=== PATIENT | male | born 1965 | race Caucasian/White ===

== ENCOUNTER 2019-01-03 12:49 | Emergency (ER) | payer BC ==
[2019-01-03 13:43] LABS: APPEARANCE,URINE CLEAR (CLEAR); BILIRUBIN,URINE NEGATIVE (NEGATIVE); COLOR,URINE YELLOW (YELLOW); GLUCOSE, URINE (UA) NEGATIVE (NEGATIVE); KETONES,URINE NEGATIVE (NEGATIVE); LEUKOCYTE ESTERASE ,URINE SMALL (NEGATIVE); NITRATE,URINE NEGATIVE (NEGATIVE); OCCULT BLOOD,URINE MODERATE (NEGATIVE); PROTEIN,URINE TRACE mg/dL (NEGATIVE); UROBILINOGEN,URINE 0.2 mg/dL (0.2-1.0)
[2019-01-03] MEDS ORDERED: KETOROLAC TROMETHAMINE 30MG/ML ONE (13:46)
[2019-01-03] MEDS ORDERED: ONDANSETRON HCL 4 MG/2 ML VIAL ONE (13:46)
[2019-01-03] MEDS ORDERED: SODIUM CHLORIDE 0.9% 1000ML 1,000 ML IV ONE (13:47)
[2019-01-03 14:01] LABS: BACTERIA,URINE Few /HPF (None Seen); MUCUS,URINE Moderate LPF (None Seen); SQUAMOUS EPITHELIAL CELL,UR 0-2 /HPF (0-2); WBC,URINE 26-50 /HPF (0-1)
[2019-01-03 14:05] LABS: BASOPHILS % (AUTO) 0.4 % (0.0-5.0); EOSINOPHILS % (AUTO) 0.8 % (0.0-8.0); HEMATOCRIT 44.7 % (42-54); LYMPHOCYTES % (AUTO) 20.6 % (21.0-51.0); MEAN CORPUSCULAR HEMOGLOBIN 30.5 pg (27.0-33.0); MEAN CORPUSCULAR HGB CONC 33.9 g/dL (32.0-36.0); MONOCYTES % (AUTO) 4.1 % (3.0-13.0); NEUTROPHILS % (AUTO) 74.1 % (40.0-77.0); PLATELET COUNT (AUTO) 216 K/uL (130-400); RED BLOOD CELL COUNT(AUTO) 4.97 MIL/uL (4.50-6.20); RED CELL DISTRIBUTION WIDTH 14.3 % (11.0-15.5); WHITE BLOOD COUNT (AUTO) 11.6 K/uL (4.8-10.8)
[2019-01-03 14:15] LABS: CREATININE 3.1 mg/dL (0.5-1.5); POTASSIUM 3.5 mmol/L (3.5-5.1)
[2019-01-03 14:18] LABS: ALBUMIN 3.5 g/dL (3.5-5.0); BILIRUBIN,TOTAL 0.4 mg/dL (0.2-1.0); TOTAL PROTEIN, SERUM 7.2 g/dL (6.0-8.3)
[2019-01-03] MEDS ORDERED: TAMSULOSIN HCL 0.4 MG CAP.ER.24H ONE (14:20)
[2019-01-03] MEDS ORDERED: CEFTRIAXONE SODIUM 1 GM ONE (14:21)
[2019-01-05] MEDS ORDERED: LACTATED RINGERS 1000ML 1,000 ML IV ONE (13:47)
[2019-01-06] MEDS ORDERED: LEVO500T2 PO (19:57)
[2019-01-06] MEDS ORDERED: OXYB5 PO (19:57)
== END 2019-01-03 15:31 | disposition home or self-care (01) ==
LOC: EDH 12:49
DX: N17.9 Acute kidney failure, unspecified (principal); N39.0 Urinary tract infection, site not specified; N13.2 Hydronephrosis with renal and ureteral calculous obstruction; Z72.0 Tobacco use
CPT/HCPCS: 36415; 74176; 76770; 80053; 81001; 83690; 85025; 96374; 96375; 99285; J0696; J1885; J2405; J7030

== ENCOUNTER 2019-01-03 17:12 | Inpatient (IN) | payer BC | END 2019-01-06 22:45 | disposition home or self-care (01) | LOC: EDH 17:12 → EDHIP 18:58 → 3AH 22:34 | PROC: BT141ZZ Fluoroscopy of Kidneys, Ureters and Bladder using Low Osmolar Contrast (ICD-10-PCS; principal; 2019-01-05 12:55) | PROC: 0TC74ZZ Extirpation of Matter from Left Ureter, Percutaneous Endoscopic Approach (ICD-10-PCS; 2019-01-05 12:55) | PROC: 0TC48ZZ Extirpation of Matter from Left Kidney Pelvis, Via Natural or Artificial Opening Endoscopic (ICD-10-PCS; 2019-01-05 12:55) | PROC: 0T778DZ Dilation of Left Ureter with Intraluminal Device, Via Natural or Artificial Opening Endoscopic (ICD-10-PCS; 2019-01-05 12:55) | DX: N13.6 Pyonephrosis (principal); N17.9 Acute kidney failure, unspecified; N39.0 Urinary tract infection, site not specified; F17.210 Nicotine dependence, cigarettes, uncomplicated; R74.8 Abnormal levels of other serum enzymes ==

== ENCOUNTER 2019-01-31 10:50 | Observation (INO) | payer BC ==
[2019-01-30 14:18] VITALS: BP 100/78
[2019-01-30 14:25] LABS: APPEARANCE,URINE Clear (CLEAR); BILIRUBIN,URINE Negative (NEGATIVE); COLOR,URINE Yellow (YELLOW); GLUCOSE, URINE (UA) Negative (NEGATIVE); KETONES,URINE Negative (NEGATIVE); LEUKOCYTE ESTERASE ,URINE Moderate (NEGATIVE); NITRATE,URINE Negative (NEGATIVE); OCCULT BLOOD,URINE Large (NEGATIVE); PROTEIN,URINE POS 1+ mg/dL (NEGATIVE); UROBILINOGEN,URINE 0.2 mg/dL (0.2-1.0)
[2019-01-30 14:27] LABS: HEMATOCRIT 44.9 % (42-54); MEAN CORPUSCULAR HEMOGLOBIN 30.4 pg (27.0-33.0); MEAN CORPUSCULAR HGB CONC 33.6 g/dL (32.0-36.0); MEAN CORPUSCULAR VOLUME 90.5 fL (79-99); NUCLEATED RED BLOOD CELLS 0.1 % (0.0-0.19); PLATELET COUNT (AUTO) 193 K/uL (130-400); RED BLOOD CELL COUNT(AUTO) 4.96 MIL/uL (4.50-6.20); RED CELL DISTRIBUTION WIDTH 13.8 % (11.0-15.5); WHITE BLOOD COUNT (AUTO) 7.3 K/uL (4.8-10.8)
[2019-01-30 14:34] LABS: CREATININE 1.7 mg/dL (0.5-1.5); POTASSIUM 3.9 mmol/L (3.5-5.1); RBC,URINE 51-100 /HPF (0-1)
[2019-01-30 14:35] LABS: BACTERIA,URINE None Seen /HPF (None Seen); SQUAMOUS EPITHELIAL CELL,UR Rare /HPF (0-2); WBC,URINE 26-50 /HPF (0-1)
[2019-01-30 14:37] LABS: INR 1.01 (0.85-1.15); PARTIAL THROMBOPLASTIN TIME 27.5 SEC (26.3-35.5); PROTHROMBIN TIME 10.6 SEC (9.6-11.6)
--- NOTE | 2019-01-30 15:20 | NUR ---
EKG INFORMED DR. JOHNSON OF ABNORMAL EKG. NO ORDERS RECEIVED. PROCEED WITH PLANNED PROCEDURE.
--- NOTE | 2019-01-30 15:37 | NUR ---
UA INFORMED AND REPORTED ABNORMAL UA TO DR. JANET PERKINS. SHE WILL INFORM HIM.
[~2019-01-31] VITALS: Ht 182.9 cm; Wt 92.9 kg
[2019-01-31] VITALS (28 sets, daily range): BP systolic 99–146; BP diastolic 65–89
[2019-01-31] MEDS: CEFAZOLIN SODIUM 1 GM VIAL IVP ONE ×2 (08:00→11:50)
[2019-01-31] MEDS ORDERED: CEFAZOLIN SODIUM 1 GM VIAL ONE (11:16)
[2019-01-31] MEDS ORDERED: IOHEXOL-350 50ML VIAL IV ONE (11:31)
[2019-01-31] MEDS: LACTATED RINGERS 1000ML 1,000 ML IV SCH ×3 (11:32→16:47)
[2019-01-31] MEDS ORDERED: ATOR20TA65 PO (11:36)
[2019-01-31] MEDS ORDERED: PROPOFOL 10 MG/ML 20ML VIAL IV ONE ×2 (11:43→11:52)
[2019-01-31] MEDS ORDERED: MIDAZOLAM HCL 1 MG/ML 2ML VIAL ONE (11:43)
[2019-01-31] MEDS ORDERED: LIDOCAINE PF 2% 5ML ABBOJECT ONE (11:43)
[2019-01-31] MEDS ORDERED: FENTANYL CITRATE PF 50 MCG/1 ML 2ML VIAL ONE ×2 (11:44→13:19)
[2019-01-31] MEDS ORDERED: PHENYLEPHRINE HCL 10 MG/ML 1ML VIAL IV ONE (11:59)
[2019-01-31] MEDS ORDERED: DEXAMETHASONE SOD PHOSPHATE 10MG/ML 1ML VIAL ONE (12:02)
[2019-01-31] MEDS ORDERED: ONDANSETRON HCL 4 MG/2 ML VIAL ONE (12:02)
[2019-01-31] MEDS ORDERED: LACTATED RINGERS 1000ML 1,000 ML IV SCH (16:15)
[2019-01-31] MEDS ORDERED: ONDANSETRON HCL 4 MG/2 ML VIAL IVP PRN (16:30)
[2019-01-31] MEDS ORDERED: MEPERIDINE-PF 75 MG/ML SYG IM PRN (16:30)
[2019-01-31] MEDS: ACETAMINOPHEN-CODEINE 300/30MG TAB PO PRN ×2 (16:46→23:50)
[2019-01-31] MEDS: CEFAZOLIN SODIUM 1 GM VIAL IVP SCH (20:59)
[2019-02-01] VITALS: BP 92/66
[2019-02-01] MEDS: LACTATED RINGERS 1000ML 1,000 ML IV SCH (01:53)
[2019-02-01 04:00] VITALS: BP 112/70
[2019-02-01] MEDS: ACETAMINOPHEN-CODEINE 300/30MG TAB PO PRN (05:15)
[2019-02-01] MEDS: CEFAZOLIN SODIUM 1 GM VIAL IVP SCH (05:15)
[2019-02-01 05:35] LABS: BASOPHILS % (AUTO) 0.2 % (0.0-5.0); HEMATOCRIT 41.3 % (42-54); LYMPHOCYTES % (AUTO) 9.3 % (21.0-51.0); MEAN CORPUSCULAR HEMOGLOBIN 30.5 pg (27.0-33.0); MEAN CORPUSCULAR HGB CONC 33.8 g/dL (32.0-36.0); MONOCYTES % (AUTO) 4.1 % (3.0-13.0); NEUTROPHILS % (AUTO) 86.4 % (40.0-77.0); PLATELET COUNT (AUTO) 174 K/uL (130-400); RED BLOOD CELL COUNT(AUTO) 4.59 MIL/uL (4.50-6.20); RED CELL DISTRIBUTION WIDTH 14.1 % (11.0-15.5); WHITE BLOOD COUNT (AUTO) 15.9 K/uL (4.8-10.8)
[2019-02-01 05:42] LABS: CREATININE 1.7 mg/dL (0.5-1.5); POTASSIUM 4.2 mmol/L (3.5-5.1)
[2019-02-01 07:30] VITALS: BP 103/69
--- NOTE | 2019-02-01 07:50 | NUR ---
RECEIVED IN BED, ALERT AND ORIENTED X3 WITHOUT RESPIRATORY DISTRESS ON ROOM AIR. IVF INFUSING WITHOUT PROBLEM. NUNN CATHETER TO BEDSIDE DRAINAGE BAG DRAINING CLEAR TO DARK PINK URINE WITH STREAK OF BLOOD. SCD'S ARE IN PLACE. PLAN OF CARE EXPLAINED TO THE PATIENT WHO VERBALIZED UNDERSTANDING.
--- NOTE | 2019-02-01 09:30 | NUR ---
T/C MADE TO DR GONZALES'S OFFICE REGARDING DISCHARGE PLAN SINCE THE PATIENT IS ANXIOUS TO LEAVE. PENDING CALL BACK.
--- NOTE | 2019-02-01 09:35 | NUR ---
PATIENT WAS MADE AWARE OF THE COMMUNICATION WITH DR GONZALES.
[2019-02-01 11:00] VITALS: BP 99/63
--- NOTE | 2019-02-01 12:45 | NUR ---
NUNN CATHETER WAS DISCONTINUED AD PER DR GONZALES ORDER. PATIENT TOLERATED IT WELL AND 475ML OF DARK PINK URINE WAS DISCARDED.
--- NOTE | 2019-02-01 13:27 | NUR ---
DISCHARGE INSTRUCTIONS GIVEN TO THE PATIENT WITH PRESCRIPTION AND FOLLOW-UP RECOMMENDATION AND HE VERBALIZED UNDERSTANDING. IV ACCESS WAS REMOVED WITHOUT COMPLICATION. LEFT THE UNIT IN STABLE CONDITION AMBULATORY ACCOMPANIED BY HIS AND THE STUDENT NURSE.
== END 2019-02-01 13:25 | disposition home or self-care (01) ==
LOC: DAH 10:50 → DAHIP 10:51 → 4BH 15:35
PROVIDERS: ADMIT Urology; ATTEND Urology
DX: N13.2 Hydronephrosis with renal and ureteral calculous obstruction (principal); E78.5 Hyperlipidemia, unspecified; Z79.899 Other long term (current) drug therapy; Z79.01 Long term (current) use of anticoagulants
CPT/HCPCS: 36415 ×2; 52356; 71046; 74420; 80048 ×2; 81001; 85025; 85027; 85610; 85730; 87088; 93005; 96374; 96376; A4344; A4358; A4600; C1758 ×2; C1769 ×4; C2617; G0378 ×27; J0690 ×3; J1100; J2001; J2250; J2370; J2405; J2704 ×2; J3010 ×2; J7120 ×3; Q9967

== ENCOUNTER 2019-03-07 06:10 | Day surgery (SDC) | payer BC ==
[2019-03-06 12:17] VITALS: BP 112/88
[2019-03-06 12:21] LABS: HEMATOCRIT 45.8 % (42-54); MEAN CORPUSCULAR HGB CONC 33.5 g/dL (32.0-36.0); MEAN CORPUSCULAR VOLUME 92.4 fL (79-99); NUCLEATED RED BLOOD CELLS 0.1 % (0.0-0.19); PLATELET COUNT (AUTO) 170 K/uL (130-400); RED BLOOD CELL COUNT(AUTO) 4.96 MIL/uL (4.50-6.20); RED CELL DISTRIBUTION WIDTH 14.1 % (11.0-15.5)
[2019-03-06 12:29] LABS: APPEARANCE,URINE Clear (CLEAR); BILIRUBIN,URINE Negative (NEGATIVE); COLOR,URINE Yellow (YELLOW); GLUCOSE, URINE (UA) Negative (NEGATIVE); KETONES,URINE Negative (NEGATIVE); LEUKOCYTE ESTERASE ,URINE Small (NEGATIVE); NITRATE,URINE Negative (NEGATIVE); OCCULT BLOOD,URINE Small (NEGATIVE); PROTEIN,URINE POS 1+ mg/dL (NEGATIVE); UROBILINOGEN,URINE 0.2 mg/dL (0.2-1.0)
--- NOTE | 2019-03-06 12:30 | NUR ---
ekg message left for Dr. Mccormick on abnormal ekg. awaiting for further orders if any
[2019-03-06 12:36] LABS: CREATININE 1.8 mg/dL (0.5-1.5); POTASSIUM 3.8 mmol/L (3.5-5.1)
[2019-03-06 12:38] LABS: INR 0.97 (0.85-1.15); PARTIAL THROMBOPLASTIN TIME 25.4 SEC (26.3-35.5); PROTHROMBIN TIME 10.2 SEC (9.6-11.6)
--- NOTE | 2019-03-06 12:43 | NUR ---
followup as per Dr. Honorio ly to proceed with sx, no further orders
[2019-03-06] MEDS: CEFAZOLIN SODIUM 1 GM VIAL IVP SCH (13:45)
[2019-03-06 13:55] LABS: BACTERIA,URINE Few /HPF (None Seen)
[2019-03-06 13:56] LABS: SQUAMOUS EPITHELIAL CELL,UR 0-2 /HPF (0-2)
--- NOTE | 2019-03-06 15:09 | NUR ---
LABS ABNORMAL LABS REPORTED TO DR. BALDERRAMA. MESSAGE LEFT WITH GREGORIO WITH DR. GONZALES'S OFFICE. AWAITING FOR FURTHER ORDERS
[2019-03-07] VITALS (18 sets, daily range): BP systolic 140–158; BP diastolic 78–101
[~2019-03-07] VITALS: Ht 182.9 cm; Wt 94.4 kg
[~2019-03-07 06:10] MED LIST: ATOR20TA65 PO
[2019-03-07] MEDS ORDERED: LACTATED RINGERS 1000ML 1,000 ML IV ONE (06:42)
[2019-03-07] MEDS ORDERED: IOHEXOL-350 50ML VIAL IV ONE (06:54)
[2019-03-07] MEDS ORDERED: MIDAZOLAM HCL 1 MG/ML 2ML VIAL ONE (07:07)
[2019-03-07] MEDS ORDERED: PROPOFOL 10 MG/ML 20ML VIAL IV ONE (07:07)
[2019-03-07] MEDS ORDERED: FENTANYL CITRATE PF 50 MCG/1 ML 2ML VIAL ONE ×2 (07:07→07:34)
[2019-03-07] MEDS ORDERED: LIDOCAINE HCL MPF 1% 5ML VIAL ONE (07:08)
[2019-03-07] MEDS: CEFAZOLIN SODIUM 1 GM VIAL IVP SCH (07:19)
[2019-03-07] MEDS ORDERED: DEXAMETHASONE SOD PHOSPHATE 10MG/ML 1ML VIAL ONE (07:28)
[2019-03-07] MEDS ORDERED: ONDANSETRON HCL 4 MG/2 ML VIAL ONE (07:29)
[2019-03-07] MEDS ORDERED: PHENYLEPHRINE HCL 10 MG/ML 1ML VIAL IV ONE (07:31)
[2019-03-07] MEDS ORDERED: SODIUM CHLORIDE 0.9% 10 ML VIAL ONE (07:31)
[2019-03-07] MEDS ORDERED: GLYCOPYRROLATE 1 MG/5 ML SYRINGE ONE (07:45)
--- NOTE | 2019-03-07 09:21 | NUR ---
post op received pt from [facility], s/p left ureteroscopy. removal left double j stent , [address] draining clear yellow urine .fc secured to leg. pt awake and alert in bed, no distress noted. vs stable on arrival. instructed patient to keep NPO until further orders
--- NOTE | 2019-03-07 09:26 | NUR ---
post op Jessica Stevens RN in to speak to patient
--- NOTE | 2019-03-07 10:10 | NUR ---
post op pt decided to go home and not go back to OR today. states he will follow up with Urologist in [place] since that is where he lives. patient only here till Wednesday. pt stable , denies any discomforts. Jessica dietary director was informed she will speak to Dr. Quinn.
--- NOTE | 2019-03-07 10:21 | NUR ---
post op genao cath removed per md orders. instructed on the importance dtv 6-8 hours post, he verbalized understanding. also dc instructions given to pt with rx, instructed to f/u with dr. richardson tomorrow at 0830 am. instructed on new med regimen, Patient stated he will be go to [facility] will obtain all records . patient spoke to via cell phone himself and discuss his decision. He verbalized understanding.
--- NOTE | 2019-03-07 10:30 | NUR ---
dc pt dc home via [place],no distress noted , denies any pain or discomforts.
== END 2019-03-07 10:30 | disposition home or self-care (01) ==
LOC: DAH 06:10
PROVIDERS: ATTEND Urology
DX: N40.1 Benign prostatic hyperplasia with lower urinary tract symptoms (principal); E78.5 Hyperlipidemia, unspecified; Z98.890 Other specified postprocedural states; F17.210 Nicotine dependence, cigarettes, uncomplicated; Z82.49 Family history of ischemic heart disease and other diseases of the circulatory system; Z79.899 Other long term (current) drug therapy
CPT/HCPCS: 36415; 74420; 80048; 81001; 84153; 84154; 85027; 85610; 85730; 87088; 88300; 93005; A4600; J0690; J1100; J2250; J2370; J2405; J2704; J3010 ×2; J3490 ×2; J7120; Q9967